=== PATIENT | male | born 1950 | race Caucasian/White ===

== ENCOUNTER 2020-02-07 09:36 | Inpatient (IN) | payer OTHER, MEDICARE ==
[~2020-02-07] VITALS: Ht 177.8 cm; Wt 98.5 kg
[2020-02-07] MEDS ORDERED: HYDROmorphone HCL 2 MG/ML VL IV ONE (10:00)
[2020-02-07] MEDS ORDERED: METOPROLOL TARTRATE 1MG/1ML-5ML VIAL IV ONE (10:00)
[2020-02-07] MEDS ORDERED: ONDANSETRON HCL 4 MG/2 ML VIAL IV ONE (10:00)
[2020-02-07] MEDS ORDERED: KETOROLAC TROMETH 15 mg/ml 1ML VL IV ONE (10:00)
[2020-02-07 10:52] LABS: Basophils # (auto) 0 10 ^3/uL (0-0.2); Eosinophils # (auto) 0 10 ^3/uL (0-0.8); Monocytes # (auto) 0.8 10 ^3/uL (0-1.3); Neutrophils # (auto) 8.6 10 ^3/uL (1.6-8.6); Platelet Count (auto) 142 10^3/uL (140-450)
[2020-02-07 10:54] LABS: Basophils % (auto) 0.1 % (0.0-2.0); Hematocrit 37.3 % (41.0-53.0); Hemoglobin 13.4 g/dL (13.5-17.5); Lymphocytes # (auto) 0.6 10 ^3/uL (0.4-5.4); Lymphocytes % (auto) 5.5 % (10.0-50.0); Mean Corpuscular Hemoglobin 37.3 pg (28.0-32.0); Mean Corpuscular Hgb Conc. 35.9 g/dL (32.0-36.0); Monocytes % (auto) 8.3 % (0.0-12.0); Neutrophils % (auto) 86.1 % (37.0-80.0); Red Blood Cells 3.58 10^6/uL (4.5-5.90); Red Cell Distribution Width 13.6 % (11.8-14.3)
[2020-02-07 11:08] LABS: Albumin 3.1 g/dL (3.4-5.0); Calcium 8.9 mg/dL (8.5-10.1); Magnesium 1.4 mg/dL (1.6-2.6); Potassium 3.9 mmol/L (3.5-5.1)
[2020-02-07 11:13] LABS: Bilirubin, Total 0.6 mg/dL (0.2-1.0); Total Protein 7.5 g/dL (6.4-8.2)
[2020-02-07 11:17] LABS: INR 1.14 (0.9-1.15); Partial Thromboplastin Time 35.2 sec (23.64-32.05)
[2020-02-07] MEDS ORDERED: NITROGLYCERIN 0.4 MG SL TAB SL PRN (12:00)
[2020-02-07] MEDS ORDERED: DEXTROSE (50%) 50ML SYRG IV PRN (12:00)
[2020-02-07] MEDS ORDERED: ACETAMINOPHEN 500 MG TAB PO PRN (12:00)
[2020-02-07] MEDS ORDERED: MORPHINE SULF INJ 2 MG/ML SYRINGE 1ML IV PRN (12:00)
[2020-02-07] MEDS ORDERED: ASPirin 81 mg TAB PO ONE ×2 (12:00→13:30)
[2020-02-07] MEDS ORDERED: LACTULOSE 20Gm/30ML SOLN PO PRN (12:00)
[2020-02-07] MEDS ORDERED: METOPROLOL TARTRATE 25 MG TAB PO ONE ×2 (12:30→13:30)
[2020-02-07] MEDS ORDERED: NITROGLYCERIN 0.2MG/HR TOPICAL PATCH TD ONE (13:30)
[2020-02-07] MEDS ORDERED: AMIODARONE HCL 150 MG in D5W 5% 100 ML IV ONE (13:30)
[2020-02-07] MEDS ORDERED: NICOTINE 14 MG/24HR TOPICAL PATCH TD ONE (13:30)
[2020-02-07] MEDS ORDERED: ENOXAPARIN SOD 120 MG/0.8 ML SYRINGE SC ONE (13:30)
[2020-02-07] MEDS ORDERED: SODIUM CHL 0.9% IV ONE (13:45)
[2020-02-07] MEDS ORDERED: ADENOSINE IV ONE (13:45)
[2020-02-07 14:04] LABS: Barbiturate Scree,Urine NEGATIVE (NEGATIVE); Benzodiazephine Screen, Urine NEGATIVE (NEGATIVE); Cannabinoid Screen, Urine POSITIVE (NEGATIVE); Cocaine Screen, Urine NEGATIVE (NEGATIVE); Opiate Scree,Urine NEGATIVE (NEGATIVE); Phencyclidine Screen, Urine NEGATIVE (NEGATIVE)
[2020-02-07 14:11] LABS: Amphetamine Screen, Urine NEGATIVE (NEGATIVE)
[2020-02-07 14:12] LABS: Alcohol, Urine < 3.0 mg/dL (0-5)
[2020-02-07] MEDS ORDERED: ADENOSINE 95 MG in GIVE UN-DILUTED 0 ML IV STA (14:14)
[2020-02-07] MEDS: traMADol HCL 50 MG TAB PO PRN ×2 (15:31→23:49)
[2020-02-07] MEDS: SODIUM CHLORIDE 0.9% 1,000 ML IV SCH (15:41)
[2020-02-07] MEDS: MAGNESIUM SULFATE 1GM/100ML 100 ML IV SCH ×2 (15:53→16:53)
[2020-02-07 16:55] LABS: Cholesterol 92 mg/dL (< 200); Triglycerides 148 mg/dL (< 150)
[2020-02-07 16:57] LABS: HDL Cholesterol 20 mg/dL (40-59); LDL Cholesterol 48 mg/dL (< 100)
[2020-02-07] MEDS: MORPHINE SULF INJ 2 MG/ML SYRINGE 1ML IV PRN (17:48)
[2020-02-07] MEDS: ACCU-CHEK COMFORT CURVE STRIP VI SCH ×2 (18:20→22:00)
[2020-02-07] MEDS: InsuLIN REG 1unit/0.01ml Soln (100units/ml) SC SCH ×2 (18:20→22:00)
[2020-02-07 19:30] VITALS: BP 168/101
[2020-02-07 20:00] VITALS: BP 145/91
[2020-02-07] MEDS ORDERED: IOHEXOL 350 MG/ML 100ML IJ ONE (20:10)
[2020-02-07] MEDS: ENOXAPARIN SOD 120 MG/0.8 ML SYRINGE SC SCH (22:00)
[2020-02-07] MEDS: APIXABAN 5 MG TAB PO SCH (23:36)
[2020-02-07] MEDS: ATORVASTATIN 20 MG TAB PO SCH (23:37)
[2020-02-07] MEDS: METOPROLOL TARTRATE 25 MG TAB PO SCH (23:37)
[2020-02-07] MEDS: TEMAZEPAM 15 MG CAP PO PRN (23:50)
[2020-02-07 23:52] VITALS: BP 133/57
[2020-02-08] MEDS: SODIUM CHLORIDE 0.9% 1,000 ML IV SCH ×2 (01:16→16:29)
[2020-02-08] MEDS: MORPHINE SULF INJ 2 MG/ML SYRINGE 1ML IV PRN (03:00)
[2020-02-08 04:00] VITALS: BP 145/88
[2020-02-08 05:50] LABS: Albumin 2.8 g/dL (3.4-5.0); Calcium 8.7 mg/dL (8.5-10.1)
[2020-02-08 05:56] LABS: BUN/Creatinine Ratio 19.8; Bilirubin, Total 0.7 mg/dL (0.2-1.0); Total Protein 7.2 g/dL (6.4-8.2)
[2020-02-08 06:05] LABS: Basophils # (auto) 0 10 ^3/uL (0-0.2); Basophils % (auto) 0.1 % (0.0-2.0); Eosinophils # (auto) 0 10 ^3/uL (0-0.8); Eosinophils % (auto) 0.1 % (0.0-7.0); Hematocrit 34.1 % (41.0-53.0); Hemoglobin 12.3 g/dL (13.5-17.5); Lymphocytes # (auto) 0.6 10 ^3/uL (0.4-5.4); Lymphocytes % (auto) 5.6 % (10.0-50.0); Mean Corpuscular Hemoglobin 37.2 pg (28.0-32.0); Mean Corpuscular Hgb Conc. 36.2 g/dL (32.0-36.0); Mean Corpuscular Volume 102.7 fL (80.0-100.0); Monocytes # (auto) 1.3 10 ^3/uL (0-1.3); Monocytes % (auto) 11.9 % (0.0-12.0); Neutrophils % (auto) 82.3 % (37.0-80.0); Platelet Count (auto) 157 10^3/uL (140-450); Red Blood Cells 3.32 10^6/uL (4.5-5.90); Red Cell Distribution Width 13.1 % (11.8-14.3)
[2020-02-08] MEDS: InsuLIN REG 1unit/0.01ml Soln (100units/ml) SC SCH ×4 (06:06→22:00)
[2020-02-08] MEDS: ACCU-CHEK COMFORT CURVE STRIP VI SCH ×4 (06:06→22:00)
[2020-02-08 07:40] VITALS: BP 141/96
[2020-02-08] MEDS ORDERED: IOHEXOL 350 MG/ML 100ML IJ ONE (08:58)
[2020-02-08] MEDS ORDERED: ASPirin 81 mg TAB PO SCH (10:00)
[2020-02-08] MEDS: ENOXAPARIN SOD 120 MG/0.8 ML SYRINGE SC SCH (10:52)
[2020-02-08] MEDS: METOPROLOL TARTRATE 25 MG TAB PO SCH ×2 (10:52→22:03)
[2020-02-08] MEDS: APIXABAN 5 MG TAB PO SCH ×2 (10:52→22:03)
[2020-02-08] MEDS: NITROGLYCERIN 0.2MG/HR TOPICAL PATCH TD SCH (10:53)
[2020-02-08] MEDS: NICOTINE 14 MG/24HR TOPICAL PATCH TD SCH (10:54)
[2020-02-08] MEDS: traMADol HCL 50 MG TAB PO PRN ×3 (11:40→22:04)
[2020-02-08 11:50] VITALS: BP 168/99
[2020-02-08 15:50] VITALS: BP 172/103
[2020-02-08] MEDS: cloNIDine HCL 0.1 MG TAB PO PRN ×2 (16:22→22:05)
[2020-02-08] MEDS ORDERED: ALPRAZolam 0.5 MG TAB PO PRN (16:45)
[2020-02-08] MEDS ORDERED: ASPI-378 PO (17:15)
[2020-02-08] MEDS ORDERED: ATOR40TA52 PO (17:15)
[2020-02-08] MEDS ORDERED: GABA100C9 PO (17:15)
[2020-02-08] MEDS ORDERED: PRAZ1CAP48 PO (17:15)
[2020-02-08] MEDS ORDERED: VENL-192 PO (17:15)
[2020-02-08] MEDS ORDERED: LISI-646 PO (17:15)
[2020-02-08] MEDS ORDERED: CYCL5TAB PO (17:15)
[2020-02-08] MEDS ORDERED: METF-929 PO (17:15)
[2020-02-08] MEDS ORDERED: POM (17:29)
[2020-02-08 20:00] VITALS: BP 175/109
[2020-02-08] MEDS: ATORVASTATIN 20 MG TAB PO SCH (22:03)
[2020-02-08] MEDS: TEMAZEPAM 15 MG CAP PO PRN (22:04)
[2020-02-08] MEDS ORDERED: LORazepam 2MG/ML-1ML VIAL IM ONE (22:30)
[2020-02-08] MEDS: METOPROLOL TARTRATE 1MG/1ML-5ML VIAL IV SCH ×3 (22:30→23:14)
[2020-02-09] VITALS (33 sets, daily range): BP systolic 84–150; BP diastolic 55–99
[2020-02-09] MEDS ORDERED: PIPERACILLIN-TAZOB 3.375GM 100 ML IV SCH
[2020-02-09] MEDS ORDERED: FLECAINIDE ACETATE 50 MG TAB PO ONE (00:15)
[2020-02-09] MEDS ORDERED: LORazepam 2MG/ML-1ML VIAL IV PRN ×2 (00:30→10:15)
[2020-02-09] MEDS: SODIUM CHLORIDE 0.9% 1,000 ML IV SCH ×2 (03:56→17:32)
[2020-02-09] MEDS: InsuLIN REG 1unit/0.01ml Soln (100units/ml) SC SCH ×4 (07:00→22:00)
[2020-02-09] MEDS: ACCU-CHEK COMFORT CURVE STRIP VI SCH ×4 (07:00→22:03)
[2020-02-09] MEDS ORDERED: AMIODARONE HCL 150 MG in D5W 5% 100 ML IV ONE (08:30)
[2020-02-09] MEDS ORDERED: AMIODARONE HCL 900 MG in DEXTROSE 500 ML IV SCH (08:37)
[2020-02-09 09:17] LABS: Albumin 2.5 g/dL (3.4-5.0); Calcium 8.6 mg/dL (8.5-10.1); Potassium 4.3 mmol/L (3.5-5.1)
[2020-02-09 09:21] LABS: Bilirubin, Total 0.9 mg/dL (0.2-1.0); Total Protein 7.2 g/dL (6.4-8.2)
[2020-02-09 09:43] LABS: BUN/Creatinine Ratio 22.6
[2020-02-09] MEDS ORDERED: SODIUM BICARBONATE 8.4 % INJ 50ML VIAL IV ONE ×3 (10:58→13:00)
[2020-02-09] MEDS ORDERED: LORazepam 2MG/ML-1ML VIAL IV ONE (12:45)
[2020-02-09] MEDS ORDERED: LIDOCAINE 1% (LOCAL ANESTH.) PF 5ml SDV ID ONE (13:00)
[2020-02-09] MEDS: METOPROLOL TARTRATE 25 MG TAB PO SCH ×2 (13:09→21:44)
[2020-02-09] MEDS: APIXABAN 5 MG TAB PO SCH ×2 (13:09→21:45)
[2020-02-09] MEDS: AMIODARONE HCL 900 MG in DEXTROSE 500 ML IV SCH (13:15)
[2020-02-09] MEDS: NITROGLYCERIN 0.2MG/HR TOPICAL PATCH TD SCH (13:28)
[2020-02-09] MEDS: FOLIC ACID 1 MG, MULTIPLE VITAMIN 10 ML, MAGNESIUM SULF SDV 50% 8 MEQ, THIAMINE INJ 100... INJ SCH ×5 (13:45)
[2020-02-09] MEDS ORDERED: MEROPENEM 1GM IVPB 100 ML IV SCH (14:00)
[2020-02-09 14:02] LABS: Hematocrit 38.2 % (41.0-53.0); Hemoglobin 13.3 g/dL (13.5-17.5); Red Blood Cells 3.65 10^6/uL (4.5-5.90)
[2020-02-09 14:04] LABS: Mean Corpuscular Hemoglobin 36.6 pg (28.0-32.0); Mean Corpuscular Hgb Conc. 34.9 g/dL (32.0-36.0); Mean Corpuscular Volume 104.7 fL (80.0-100.0); Platelet Count (auto) 190 10^3/uL (140-450); Red Cell Distribution Width 13.4 % (11.8-14.3)
[2020-02-09] MEDS ORDERED: ETOMIDATE (2MG/ML) 20ML VIAL IV ONE (14:05)
[2020-02-09] MEDS ORDERED: MIDAZOLAM DRIP 50 mg/50mL 50 ML IV ONE (14:06)
[2020-02-09] MEDS ORDERED: SUCCINYLCHOLINE CHLORIDE 20 MG/ML 10ML VIAL IV ONE (14:06)
[2020-02-09 14:24] LABS: Basophils % (manual) 0 (0.0-2.0); Blast Cells 0; Eosinophils % (manual) 0 (0-7); Metamyelocytes % 0; Myelocytes % 0; Promyelocytes % 0; Reactive Lymphocytes 0
[2020-02-09 14:36] LABS: Lactic Acid w/Reflex 5.4 mmol/L (0.4-2.0)
[2020-02-09] MEDS: MIDAZOLAM DRIP 50 mg/50mL 50 ML IV SCH ×3 (14:43→21:46)
[2020-02-09] MEDS ORDERED: fentaNYL Drip 2500mCg/250mlNS 250 ML IV ONE (14:46)
[2020-02-09] MEDS: fentaNYL Drip 2500mCg/250mlNS 250 ML IV SCH (15:00)
[2020-02-09] MEDS ORDERED: SODIUM CHLORIDE 0.9% 1,000 ML IV ONE (15:45)
[2020-02-09] MEDS ORDERED: VANCOMYCIN 1GM/250ML 250 ML IV ONE ×2 (15:45→17:00)
[2020-02-09] MEDS ORDERED: PIPERACILLIN-TAZOB 3.375GM 100 ML IV ONE (15:45)
[2020-02-09] MEDS ORDERED: VANCOMYCIN PER PHARMACY 0 MG IV SCH (16:00)
[2020-02-09 16:11] LABS: Band Neutrophils % (manual) 2; Lymphocytes % (manual) 6 (10.0-50.0); Monocytes % (manual) 6 (0-12)
[2020-02-09] MEDS: NICOTINE 14 MG/24HR TOPICAL PATCH TD SCH (16:14)
[2020-02-09] MEDS: PIPERACILLIN-TAZOB 3.375GM 100 ML IV SCH (19:00)
[2020-02-09] MEDS ORDERED: NOREPINEPHRINE 8 MG/250ML KIT 250 ML IV ONE (19:43)
[2020-02-09] MEDS ORDERED: chlordiazePOXIDE HCL 25 MG CAP PO PRN (21:15)
[2020-02-09] MEDS ORDERED: chlordiazePOXIDE HCL 25 MG CAP PO ONE (21:15)
[2020-02-09] MEDS ORDERED: ACETAMINOPHEN 650 mg PER 20 mL UD ONE (21:42)
[2020-02-09] MEDS ORDERED: ACETAMINOPHEN 650 MG RECT SUPP PR PRN (21:45)
[2020-02-09] MEDS: ATORVASTATIN 20 MG TAB PO SCH (21:45)
[2020-02-09] MEDS: SODIUM CHLOR 0.9% PF (SALINE LOCK) 10ML VIAL/SYR IV SCH (21:46)
[2020-02-09] MEDS: ACETAMINOPHEN 650 mg PER 20 mL UD GT PRN (21:57)
[2020-02-10] VITALS (99 sets, daily range): BP systolic 78–120; BP diastolic 46–85
[2020-02-10] MEDS ORDERED: SODIUM CHLORIDE 0.9% 500 ML IV SCH (00:01)
[2020-02-10] MEDS: PIPERACILLIN-TAZOB 3.375GM 100 ML IV SCH ×5 (00:24→23:45)
[2020-02-10] MEDS: NOREPINEPHRINE 8 MG/250ML KIT 250 ML IV SCH ×2 (00:32→17:40)
[2020-02-10] MEDS: SODIUM CHLORIDE 0.9% 1,000 ML IV SCH ×3 (01:49→23:46)
[2020-02-10 04:30] LABS: Basophils # (auto) 0 10 ^3/uL (0-0.2); Basophils % (auto) 0.2 % (0.0-2.0); Mean Corpuscular Hemoglobin 36.6 pg (28.0-32.0); Neutrophils # (auto) 8.2 10 ^3/uL (1.6-8.6)
[2020-02-10 04:32] LABS: Eosinophils # (auto) 0.1 10 ^3/uL (0-0.8); Eosinophils % (auto) 1.2 % (0.0-7.0); Hematocrit 35.8 % (41.0-53.0); Hemoglobin 12.5 g/dL (13.5-17.5); Lymphocytes # (auto) 1.2 10 ^3/uL (0.4-5.4); Lymphocytes % (auto) 12.1 % (10.0-50.0); Mean Corpuscular Volume 104.6 fL (80.0-100.0); Monocytes # (auto) 0.4 10 ^3/uL (0-1.3); Monocytes % (auto) 4.1 % (0.0-12.0); Neutrophils % (auto) 82.4 % (37.0-80.0); Nucleated Red Blood Cells % 0.1 %; Platelet Count (auto) 171 10^3/uL (140-450); Red Blood Cells 3.42 10^6/uL (4.5-5.90); Red Cell Distribution Width 13.7 % (11.8-14.3)
[2020-02-10 04:44] LABS: INR 1.47 (0.9-1.15); Partial Thromboplastin Time 39.4 sec (23.64-32.05)
[2020-02-10 04:48] LABS: BUN/Creatinine Ratio 31.3; Potassium 3.6 mmol/L (3.5-5.1)
[2020-02-10] MEDS: MIDAZOLAM DRIP 50 mg/50mL 50 ML IV SCH ×3 (05:22→18:28)
[2020-02-10] MEDS: ACCU-CHEK COMFORT CURVE STRIP VI SCH ×4 (05:57→22:35)
[2020-02-10] MEDS: InsuLIN REG 1unit/0.01ml Soln (100units/ml) SC SCH ×4 (05:57→22:35)
[2020-02-10] MEDS ORDERED: VANCOMYCIN 1GM/250ML 250 ML IV SCH (07:00)
[2020-02-10] MEDS ORDERED: FUROSEMIDE 40 MG/4 ML VIAL IV ONE (07:45)
[2020-02-10 09:30] LABS: Hepatitis B Surface Antibody Positive
[2020-02-10] MEDS: NITROGLYCERIN 0.2MG/HR TOPICAL PATCH TD SCH (09:32)
[2020-02-10] MEDS: METOPROLOL TARTRATE 25 MG TAB PO SCH ×2 (10:00→22:00)
[2020-02-10] MEDS: NICOTINE 14 MG/24HR TOPICAL PATCH TD SCH (10:00)
[2020-02-10] MEDS: APIXABAN 5 MG TAB PO SCH (10:00)
[2020-02-10] MEDS ORDERED: LIDOCAINE 2%HCL (LOCAL ANESTH.) INJ 20ML MDV ONE (10:06)
[2020-02-10] MEDS ORDERED: HEPARIN IN NS 1000Units/500mL 0 ML ONE (10:06)
[2020-02-10 10:08] LABS: Hepatitis A Total Antibody Negative
[2020-02-10] MEDS ORDERED: POTASSIUM CHL 20MEQ/100ML 100 ML IV ONE (10:30)
[2020-02-10] MEDS: SODIUM CHLOR 0.9% PF (SALINE LOCK) 10ML VIAL/SYR IV SCH ×2 (10:48→22:23)
[2020-02-10] MEDS: PANTOPRAZOLE 40 MG/10 ML VIAL INJ IV SCH (10:48)
[2020-02-10 11:25] LABS: Hepatitis B Core Total AB Negative; Hepatitis B Surface Antigen Negative (Negative); Hepatitis C Antibody Negative (Negative)
[2020-02-10] MEDS: fentaNYL Drip 2500mCg/250mlNS 250 ML IV SCH (11:52)
[2020-02-10] MEDS: PHENYLEPHRINE INJ 40 MG in SODIUM CHL 0.9% 250 ML IV SCH ×2 (12:24→20:09)
[2020-02-10] MEDS: AMIODARONE HCL 900 MG in DEXTROSE 500 ML IV SCH (16:00)
[2020-02-10] MEDS: FOLIC ACID 1 MG, MULTIPLE VITAMIN 10 ML, MAGNESIUM SULF SDV 50% 8 MEQ, THIAMINE INJ 100... INJ SCH ×5 (16:16)
[2020-02-10 17:08] LABS: BUN/Creatinine Ratio 32.4; Calcium 7.6 mg/dL (8.5-10.1); Potassium 3.3 mmol/L (3.5-5.1)
[2020-02-10] MEDS: FUROSEMIDE 40 MG/4 ML VIAL IV SCH (17:40)
[2020-02-10] MEDS: POTASSIUM CHL 20MEQ/100ML 100 ML IV SCH ×2 (17:55→20:03)
[2020-02-10] MEDS ORDERED: POTASSIUM EFFERVESENT TAB 25 MEQ GT ONE (19:00)
[2020-02-10] MEDS: VANCOMYCIN 1GM/250ML 250 ML IV SCH (20:07)
[2020-02-10] MEDS: ENOXAPARIN SOD 120 MG/0.8 ML SYRINGE SC SCH (22:22)
[2020-02-10] MEDS: ATORVASTATIN 20 MG TAB PO SCH (22:23)
[2020-02-11] VITALS (102 sets, daily range): BP systolic 79–136; BP diastolic 39–109
[2020-02-11] MEDS: MIDAZOLAM DRIP 50 mg/50mL 50 ML IV SCH ×2 (03:13→12:48)
[2020-02-11 04:09] LABS: Basophils # (auto) 0 10 ^3/uL (0-0.2); Basophils % (auto) 0.3 % (0.0-2.0); Eosinophils # (auto) 0.2 10 ^3/uL (0-0.8); Eosinophils % (auto) 1.6 % (0.0-7.0); Hematocrit 37.2 % (41.0-53.0); Hemoglobin 12.6 g/dL (13.5-17.5); Lymphocytes # (auto) 0.6 10 ^3/uL (0.4-5.4); Lymphocytes % (auto) 5.1 % (10.0-50.0); Mean Corpuscular Hemoglobin 35.6 pg (28.0-32.0); Mean Corpuscular Hgb Conc. 33.9 g/dL (32.0-36.0); Mean Corpuscular Volume 105.1 fL (80.0-100.0); Monocytes # (auto) 0.7 10 ^3/uL (0-1.3); Monocytes % (auto) 5.7 % (0.0-12.0); Neutrophils # (auto) 10.7 10 ^3/uL (1.6-8.6); Neutrophils % (auto) 87.3 % (37.0-80.0); Nucleated Red Blood Cells % 0.5 %; Platelet Count (auto) 182 10^3/uL (140-450); Red Blood Cells 3.54 10^6/uL (4.5-5.90); Red Cell Distribution Width 14.3 % (11.8-14.3); White Blood Cell 12.3 10^3/uL (4.4-10.8)
[2020-02-11 04:39] LABS: Potassium 3.4 mmol/L (3.5-5.1)
[2020-02-11 04:41] LABS: BUN/Creatinine Ratio 27.1
[2020-02-11] MEDS: PHENYLEPHRINE INJ 40 MG in SODIUM CHL 0.9% 250 ML IV SCH ×3 (04:48→18:33)
[2020-02-11] MEDS: PIPERACILLIN-TAZOB 3.375GM 100 ML IV SCH ×4 (06:06→23:50)
[2020-02-11] MEDS ORDERED: FUROSEMIDE 20 MG/2 ML VIAL ONE (06:10)
[2020-02-11] MEDS: fentaNYL Drip 2500mCg/250mlNS 250 ML IV SCH (06:10)
[2020-02-11] MEDS: FUROSEMIDE 40 MG/4 ML VIAL IV SCH (06:14)
[2020-02-11] MEDS: ACCU-CHEK COMFORT CURVE STRIP VI SCH ×4 (06:15→21:46)
[2020-02-11] MEDS: InsuLIN REG 1unit/0.01ml Soln (100units/ml) SC SCH ×4 (06:15→21:52)
[2020-02-11] MEDS ORDERED: POTASSIUM EFFERVESENT TAB 25 MEQ GT ONE (08:15)
[2020-02-11] MEDS: VANCOMYCIN 1GM/250ML 250 ML IV SCH ×2 (09:20→21:09)
[2020-02-11] MEDS: SODIUM CHLOR 0.9% PF (SALINE LOCK) 10ML VIAL/SYR IV SCH ×2 (10:50→22:16)
[2020-02-11] MEDS: PANTOPRAZOLE 40 MG/10 ML VIAL INJ IV SCH (10:50)
[2020-02-11] MEDS: METOPROLOL TARTRATE 25 MG TAB PO SCH ×2 (10:51→22:00)
[2020-02-11] MEDS: NICOTINE 14 MG/24HR TOPICAL PATCH TD SCH (10:52)
[2020-02-11] MEDS: NITROGLYCERIN 0.2MG/HR TOPICAL PATCH TD SCH (10:53)
[2020-02-11] MEDS: ENOXAPARIN SOD 120 MG/0.8 ML SYRINGE SC SCH ×2 (15:45→22:17)
[2020-02-11] MEDS: AMIODARONE HCL 900 MG in DEXTROSE 500 ML IV SCH (16:30)
[2020-02-11] MEDS ORDERED: FUROSEMIDE 100 MG/10ML VIAL IV ONE (19:00)
[2020-02-11] MEDS: NOREPINEPHRINE 8 MG/250ML KIT 250 ML IV SCH (19:45)
[2020-02-11] MEDS: ACETAMINOPHEN 650 mg PER 20 mL UD GT PRN (21:12)
[2020-02-11] MEDS: ATORVASTATIN 20 MG TAB PO SCH (22:17)
[2020-02-12] VITALS (106 sets, daily range): BP systolic 89–160; BP diastolic 57–109
[2020-02-12 04:04] LABS: Basophils # (auto) 0.1 10 ^3/uL (0-0.2); Basophils % (auto) 0.4 % (0.0-2.0); Eosinophils # (auto) 0 10 ^3/uL (0-0.8); Hemoglobin 12.1 g/dL (13.5-17.5); Lymphocytes # (auto) 1.1 10 ^3/uL (0.4-5.4); Monocytes # (auto) 0.7 10 ^3/uL (0-1.3)
[2020-02-12 04:06] LABS: Eosinophils % (auto) 0.2 % (0.0-7.0); Hematocrit 35.3 % (41.0-53.0); Lymphocytes % (auto) 8.4 % (10.0-50.0); Mean Corpuscular Hemoglobin 35.4 pg (28.0-32.0); Mean Corpuscular Hgb Conc. 34.3 g/dL (32.0-36.0); Mean Corpuscular Volume 103.2 fL (80.0-100.0); Monocytes % (auto) 5.2 % (0.0-12.0); Neutrophils # (auto) 11.4 10 ^3/uL (1.6-8.6); Neutrophils % (auto) 85.8 % (37.0-80.0); Nucleated Red Blood Cells % 0.5 %; Platelet Count (auto) 186 10^3/uL (140-450); Red Blood Cells 3.42 10^6/uL (4.5-5.90); Red Cell Distribution Width 13.9 % (11.8-14.3); White Blood Cell 13.3 10^3/uL (4.4-10.8)
[2020-02-12 04:19] LABS: INR 1.54 (0.9-1.15); Partial Thromboplastin Time 46.6 sec (23.64-32.05)
[2020-02-12 04:20] LABS: Albumin 1.4 g/dL (3.4-5.0); Calcium 7.6 mg/dL (8.5-10.1)
[2020-02-12 04:31] LABS: Bilirubin, Total 2.2 mg/dL (0.2-1.0); Total Protein 5.7 g/dL (6.4-8.2)
[2020-02-12] MEDS: VANCOMYCIN 1GM/250ML 250 ML IV SCH ×3 (04:59→20:57)
[2020-02-12] MEDS ORDERED: POTASSIUM CHL 20MEQ/100ML 100 ML IV ONE (06:00)
[2020-02-12] MEDS: PIPERACILLIN-TAZOB 3.375GM 100 ML IV SCH ×4 (06:06→23:37)
[2020-02-12] MEDS: FUROSEMIDE 100 MG/10ML VIAL IV SCH ×2 (06:19→18:18)
[2020-02-12] MEDS: ACCU-CHEK COMFORT CURVE STRIP VI SCH ×4 (06:33→21:40)
[2020-02-12] MEDS: InsuLIN REG 1unit/0.01ml Soln (100units/ml) SC SCH ×4 (06:34→21:55)
[2020-02-12 07:48] LABS: Bilirubin, Direct 1.8 mg/dL (0-0.2)
[2020-02-12 08:48] LABS: BUN/Creatinine Ratio 28.9
[2020-02-12] MEDS: ENOXAPARIN SOD 120 MG/0.8 ML SYRINGE SC SCH ×2 (09:44→21:39)
[2020-02-12] MEDS: PANTOPRAZOLE 40 MG/10 ML VIAL INJ IV SCH (09:45)
[2020-02-12] MEDS: METOPROLOL TARTRATE 25 MG TAB PO SCH ×2 (09:45→21:40)
[2020-02-12] MEDS: NICOTINE 14 MG/24HR TOPICAL PATCH TD SCH (09:46)
[2020-02-12] MEDS: NITROGLYCERIN 0.2MG/HR TOPICAL PATCH TD SCH (09:46)
[2020-02-12] MEDS: SODIUM CHLOR 0.9% PF (SALINE LOCK) 10ML VIAL/SYR IV SCH ×2 (11:05→21:53)
[2020-02-12] MEDS: PHENYLEPHRINE INJ 40 MG in SODIUM CHL 0.9% 250 ML IV SCH (12:28)
[2020-02-12] MEDS: MIDAZOLAM DRIP 50 mg/50mL 50 ML IV SCH (14:43)
[2020-02-12] MEDS: fentaNYL Drip 2500mCg/250mlNS 250 ML IV SCH (14:43)
[2020-02-12] MEDS: AMIODARONE HCL 900 MG in DEXTROSE 500 ML IV SCH (16:56)
[2020-02-12] MEDS: POTASSIUM EFFERVESENT TAB 25 MEQ GT SCH (18:18)
[2020-02-12] MEDS: NOREPINEPHRINE 8 MG/250ML KIT 250 ML IV SCH (19:45)
[2020-02-12] MEDS: ATORVASTATIN 20 MG TAB PO SCH (21:39)
[2020-02-12] MEDS: AMIODARONE HCL 200 MG TAB PO SCH (21:39)
[2020-02-13] VITALS (101 sets, daily range): BP systolic 103–176; BP diastolic 42–131
[2020-02-13 04:18] LABS: Albumin 1.5 g/dL (3.4-5.0); BUN/Creatinine Ratio 27.6; Magnesium 1.3 mg/dL (1.6-2.6); Potassium 3.3 mmol/L (3.5-5.1)
[2020-02-13 04:21] LABS: Bilirubin, Total 2.2 mg/dL (0.2-1.0); Total Protein 6.2 g/dL (6.4-8.2)
[2020-02-13] MEDS: VANCOMYCIN 1GM/250ML 250 ML IV SCH (04:55)
[2020-02-13] MEDS ORDERED: POTASSIUM CHL 20MEQ/100ML 100 ML IV ONE (05:30)
[2020-02-13] MEDS: PIPERACILLIN-TAZOB 3.375GM 100 ML IV SCH (05:51)
[2020-02-13] MEDS: FUROSEMIDE 100 MG/10ML VIAL IV SCH ×2 (05:57→18:24)
[2020-02-13] MEDS ORDERED: MAGNESIUM SULFATE 1GM/100ML 100 ML IV ONE ×3 (06:00→15:00)
[2020-02-13] MEDS: InsuLIN REG 1unit/0.01ml Soln (100units/ml) SC SCH ×4 (06:33→22:00)
[2020-02-13] MEDS: ACCU-CHEK COMFORT CURVE STRIP VI SCH ×4 (06:33→22:05)
[2020-02-13] MEDS: SODIUM CHLOR 0.9% PF (SALINE LOCK) 10ML VIAL/SYR IV SCH ×2 (10:00→22:02)
[2020-02-13] MEDS: POTASSIUM EFFERVESENT TAB 25 MEQ GT SCH (10:59)
[2020-02-13] MEDS: PANTOPRAZOLE 40 MG/10 ML VIAL INJ IV SCH (10:59)
[2020-02-13] MEDS: levoFLOXacin 750MG 150 ML IV SCH (11:00)
[2020-02-13] MEDS: fentaNYL Drip 2500mCg/250mlNS 250 ML IV SCH (11:00)
[2020-02-13] MEDS: AMIODARONE HCL 200 MG TAB PO SCH ×2 (11:00→22:03)
[2020-02-13] MEDS: ENOXAPARIN SOD 120 MG/0.8 ML SYRINGE SC SCH ×2 (11:01→22:04)
[2020-02-13] MEDS: METOPROLOL TARTRATE 25 MG TAB PO SCH ×2 (11:01→22:03)
[2020-02-13] MEDS: NITROGLYCERIN 0.2MG/HR TOPICAL PATCH TD SCH (11:02)
[2020-02-13] MEDS: NICOTINE 14 MG/24HR TOPICAL PATCH TD SCH (11:03)
[2020-02-13 11:42] LABS: Basophils # (auto) 0 10 ^3/uL (0-0.2); Eosinophils # (auto) 0 10 ^3/uL (0-0.8); Lymphocytes # (auto) 0.8 10 ^3/uL (0.4-5.4); Monocytes # (auto) 0.5 10 ^3/uL (0-1.3); Neutrophils # (auto) 8.7 10 ^3/uL (1.6-8.6); Red Cell Distribution Width 14.5 % (11.8-14.3)
[2020-02-13 11:45] LABS: Basophils % (auto) 0.3 % (0.0-2.0); Eosinophils % (auto) 0.3 % (0.0-7.0); Hematocrit 35.4 % (41.0-53.0); Hemoglobin 12.4 g/dL (13.5-17.5); Lymphocytes % (auto) 7.9 % (10.0-50.0); Mean Corpuscular Hemoglobin 36.4 pg (28.0-32.0); Mean Corpuscular Hgb Conc. 35.1 g/dL (32.0-36.0); Mean Corpuscular Volume 103.7 fL (80.0-100.0); Monocytes % (auto) 4.9 % (0.0-12.0); Neutrophils % (auto) 86.6 % (37.0-80.0); Nucleated Red Blood Cells % 0.3 %; Platelet Count (auto) 172 10^3/uL (140-450); Red Blood Cells 3.41 10^6/uL (4.5-5.90)
[2020-02-13 13:52] LABS: Magnesium 1.5 mg/dL (1.6-2.6); Potassium 3.2 mmol/L (3.5-5.1)
[2020-02-13] MEDS: AMIODARONE HCL 900 MG in DEXTROSE 500 ML IV SCH (14:37)
[2020-02-13] MEDS: MIDAZOLAM DRIP 50 mg/50mL 50 ML IV SCH (14:43)
[2020-02-13] MEDS ORDERED: POTASSIUM CHL 20MEQ/100ML 200 ML IV ONE (15:00)
[2020-02-13] MEDS: POTASSIUM CHL 20MEQ/100ML 100 ML IV SCH ×2 (15:00→16:31)
[2020-02-13] MEDS: ceFAZolin 2 GM in D5W 5% 100 ML IV SCH ×2 (15:55→22:02)
[2020-02-13] MEDS: NOREPINEPHRINE 8 MG/250ML KIT 250 ML IV SCH (19:45)
[2020-02-13] MEDS: ATORVASTATIN 20 MG TAB PO SCH (22:03)
[2020-02-13] MEDS: PHENYLEPHRINE INJ 40 MG in SODIUM CHL 0.9% 250 ML IV SCH (22:05)
[2020-02-14] VITALS (106 sets, daily range): BP systolic 115–165; BP diastolic 67–102
[2020-02-14] MEDS: DexMEDEtomidine 400 MCG in D5W 5% 96 ML IV SCH ×2 (04:22→12:38)
[2020-02-14 04:54] LABS: Calcium 8.2 mg/dL (8.5-10.1); Potassium 3.9 mmol/L (3.5-5.1)
[2020-02-14 05:02] LABS: Albumin 1.5 g/dL (3.4-5.0); BUN/Creatinine Ratio 31.3; Bilirubin, Total 1.5 mg/dL (0.2-1.0); Total Protein 6.5 g/dL (6.4-8.2)
[2020-02-14 05:13] LABS: Hematocrit 37.7 % (41.0-53.0)
[2020-02-14 05:15] LABS: Hemoglobin 12.9 g/dL (13.5-17.5); Mean Corpuscular Hemoglobin 35.1 pg (28.0-32.0); Mean Corpuscular Hgb Conc. 34.1 g/dL (32.0-36.0); Mean Corpuscular Volume 102.8 fL (80.0-100.0); Platelet Count (auto) 183 10^3/uL (140-450); Red Blood Cells 3.67 10^6/uL (4.5-5.90); Red Cell Distribution Width 14.8 % (11.8-14.3)
[2020-02-14 05:29] LABS: Basophils % (manual) 0 (0.0-2.0); Blast Cells 0; Eosinophils % (manual) 0 (0-7); Metamyelocytes % 0; Myelocytes % 0; Promyelocytes % 0; Reactive Lymphocytes 0
[2020-02-14] MEDS: FUROSEMIDE 100 MG/10ML VIAL IV SCH ×2 (05:31→18:02)
[2020-02-14] MEDS: ceFAZolin 2 GM in D5W 5% 100 ML IV SCH ×3 (05:34→22:09)
[2020-02-14] MEDS: ACCU-CHEK COMFORT CURVE STRIP VI SCH ×4 (06:30→22:08)
[2020-02-14] MEDS: InsuLIN REG 1unit/0.01ml Soln (100units/ml) SC SCH ×4 (06:30→22:00)
[2020-02-14 07:18] LABS: Band Neutrophils % (manual) 3; Lymphocytes % (manual) 5 (10.0-50.0); Monocytes % (manual) 3 (0-12)
[2020-02-14] MEDS: POTASSIUM EFFERVESENT TAB 25 MEQ GT SCH (10:24)
[2020-02-14] MEDS: levoFLOXacin 750MG 150 ML IV SCH (10:24)
[2020-02-14] MEDS: SODIUM CHLOR 0.9% PF (SALINE LOCK) 10ML VIAL/SYR IV SCH ×2 (10:24→22:09)
[2020-02-14] MEDS: METOPROLOL TARTRATE 25 MG TAB PO SCH ×2 (10:24→22:08)
[2020-02-14] MEDS: AMIODARONE HCL 200 MG TAB PO SCH ×2 (10:24→22:08)
[2020-02-14] MEDS: NICOTINE 14 MG/24HR TOPICAL PATCH TD SCH (10:25)
[2020-02-14] MEDS: ENOXAPARIN SOD 120 MG/0.8 ML SYRINGE SC SCH ×2 (10:25→22:08)
[2020-02-14] MEDS: NITROGLYCERIN 0.2MG/HR TOPICAL PATCH TD SCH (10:25)
[2020-02-14] MEDS: PANTOPRAZOLE 40 MG/10 ML VIAL INJ IV SCH (10:25)
[2020-02-14] MEDS: AMIODARONE HCL 900 MG in DEXTROSE 500 ML IV SCH (14:37)
[2020-02-14] MEDS: MIDAZOLAM DRIP 50 mg/50mL 50 ML IV SCH (14:43)
[2020-02-14] MEDS: fentaNYL Drip 2500mCg/250mlNS 250 ML IV SCH (14:43)
[2020-02-14] MEDS: PHENYLEPHRINE INJ 40 MG in SODIUM CHL 0.9% 250 ML IV SCH (14:45)
[2020-02-14] MEDS: cloNIDine HCL 0.1 MG TAB PO PRN (18:02)
[2020-02-14] MEDS: NOREPINEPHRINE 8 MG/250ML KIT 250 ML IV SCH (19:45)
[2020-02-14] MEDS: ACETAMINOPHEN 650 mg PER 20 mL UD GT PRN (21:39)
[2020-02-14] MEDS: ATORVASTATIN 20 MG TAB PO SCH (22:08)
[2020-02-15] VITALS (106 sets, daily range): BP systolic 116–155; BP diastolic 56–100
[2020-02-15 04:01] LABS: Basophils # (auto) 0 10 ^3/uL (0-0.2); Basophils % (auto) 0.2 % (0.0-2.0); Eosinophils # (auto) 0 10 ^3/uL (0-0.8); Eosinophils % (auto) 0.1 % (0.0-7.0); Hematocrit 36.1 % (41.0-53.0); Hemoglobin 12.5 g/dL (13.5-17.5); Lymphocytes # (auto) 1.3 10 ^3/uL (0.4-5.4); Lymphocytes % (auto) 9.5 % (10.0-50.0); Mean Corpuscular Hgb Conc. 34.5 g/dL (32.0-36.0); Mean Corpuscular Volume 101.3 fL (80.0-100.0); Monocytes # (auto) 0.7 10 ^3/uL (0-1.3); Neutrophils # (auto) 11.3 10 ^3/uL (1.6-8.6); Neutrophils % (auto) 85.2 % (37.0-80.0); Nucleated Red Blood Cells % 0.1 %; Platelet Count (auto) 177 10^3/uL (140-450); Red Blood Cells 3.57 10^6/uL (4.5-5.90); Red Cell Distribution Width 14.6 % (11.8-14.3); White Blood Cell 13.3 10^3/uL (4.4-10.8)
[2020-02-15 04:21] LABS: Calcium 8.5 mg/dL (8.5-10.1); Potassium 3.4 mmol/L (3.5-5.1)
[2020-02-15 04:25] LABS: Albumin 1.6 g/dL (3.4-5.0); BUN/Creatinine Ratio 37.8
[2020-02-15 04:27] LABS: Bilirubin, Total 1.1 mg/dL (0.2-1.0); Total Protein 6.2 g/dL (6.4-8.2)
[2020-02-15] MEDS: ACCU-CHEK COMFORT CURVE STRIP VI SCH ×4 (06:27→22:00)
[2020-02-15] MEDS: ceFAZolin 2 GM in D5W 5% 100 ML IV SCH ×3 (06:27→22:00)
[2020-02-15] MEDS: FUROSEMIDE 100 MG/10ML VIAL IV SCH ×2 (06:27→18:16)
[2020-02-15] MEDS: InsuLIN REG 1unit/0.01ml Soln (100units/ml) SC SCH ×4 (06:27→22:00)
[2020-02-15] MEDS: PHENYLEPHRINE INJ 40 MG in SODIUM CHL 0.9% 250 ML IV SCH (07:25)
[2020-02-15] MEDS: DexMEDEtomidine 400 MCG in D5W 5% 96 ML IV SCH (07:38)
[2020-02-15] MEDS: PANTOPRAZOLE 40 MG/10 ML VIAL INJ IV SCH (10:33)
[2020-02-15] MEDS: NICOTINE 14 MG/24HR TOPICAL PATCH TD SCH (10:33)
[2020-02-15] MEDS: levoFLOXacin 750MG 150 ML IV SCH (10:33)
[2020-02-15] MEDS: SODIUM CHLOR 0.9% PF (SALINE LOCK) 10ML VIAL/SYR IV SCH ×2 (10:34→22:00)
[2020-02-15] MEDS: NITROGLYCERIN 0.2MG/HR TOPICAL PATCH TD SCH (10:34)
[2020-02-15] MEDS: AMIODARONE HCL 200 MG TAB PO SCH ×2 (10:34→22:00)
[2020-02-15] MEDS: METOPROLOL TARTRATE 25 MG TAB PO SCH ×2 (10:34→22:00)
[2020-02-15] MEDS: POTASSIUM EFFERVESENT TAB 25 MEQ GT SCH (10:35)
[2020-02-15] MEDS: ENOXAPARIN SOD 120 MG/0.8 ML SYRINGE SC SCH ×2 (10:35→22:00)
[2020-02-15] MEDS: AMIODARONE HCL 900 MG in DEXTROSE 500 ML IV SCH (14:37)
[2020-02-15] MEDS: fentaNYL Drip 2500mCg/250mlNS 250 ML IV SCH (14:43)
[2020-02-15] MEDS: MIDAZOLAM DRIP 50 mg/50mL 50 ML IV SCH (14:43)
[2020-02-15] MEDS: NOREPINEPHRINE 8 MG/250ML KIT 250 ML IV SCH (19:45)
[2020-02-15] MEDS: ATORVASTATIN 20 MG TAB PO SCH (22:00)
[2020-02-16] VITALS (77 sets, daily range): BP systolic 117–162; BP diastolic 69–95
[2020-02-16] MEDS: PHENYLEPHRINE INJ 40 MG in SODIUM CHL 0.9% 250 ML IV SCH ×2 (00:05→15:40)
[2020-02-16] MEDS: DexMEDEtomidine 400 MCG in D5W 5% 96 ML IV SCH (02:38)
[2020-02-16] MEDS: ACETAMINOPHEN 650 mg PER 20 mL UD GT PRN (04:17)
[2020-02-16] MEDS ORDERED: ceFAZolin 1GM/50ML 50 ML IV ONE (05:57)
[2020-02-16] MEDS: FUROSEMIDE 100 MG/10ML VIAL IV SCH ×2 (06:27→16:51)
[2020-02-16] MEDS ORDERED: methylPREDNISolone SOD SUCC 125 MG/2 ML VL IV ONE (09:15)
[2020-02-16] MEDS ORDERED: methylPREDNISolone SOD SUCC 125 MG/2 ML VL ONE (09:41)
[2020-02-16] MEDS: POTASSIUM EFFERVESENT TAB 25 MEQ GT SCH (09:46)
[2020-02-16] MEDS: PANTOPRAZOLE 40 MG/10 ML VIAL INJ IV SCH (09:46)
[2020-02-16] MEDS: ENOXAPARIN SOD 120 MG/0.8 ML SYRINGE SC SCH ×2 (09:47→22:09)
[2020-02-16] MEDS: METOPROLOL TARTRATE 25 MG TAB PO SCH ×2 (09:47→22:07)
[2020-02-16] MEDS: AMIODARONE HCL 200 MG TAB PO SCH ×2 (09:47→22:06)
[2020-02-16] MEDS: levoFLOXacin 750MG 150 ML IV SCH (09:48)
[2020-02-16] MEDS: SODIUM CHLOR 0.9% PF (SALINE LOCK) 10ML VIAL/SYR IV SCH ×2 (09:48→22:05)
[2020-02-16] MEDS: NICOTINE 14 MG/24HR TOPICAL PATCH TD SCH (09:49)
[2020-02-16] MEDS: NITROGLYCERIN 0.2MG/HR TOPICAL PATCH TD SCH (10:05)
[2020-02-16 10:51] LABS: Albumin 1.5 g/dL (3.4-5.0); BUN/Creatinine Ratio 36.7; Calcium 7.2 mg/dL (8.5-10.1); Total Protein 5.7 g/dL (6.4-8.2)
[2020-02-16 10:57] LABS: Potassium 2.8 mmol/L (3.5-5.1)
[2020-02-16] MEDS: POTASSIUM CHL 20MEQ/100ML 100 ML IV SCH ×3 (11:29→15:00)
[2020-02-16] MEDS: InsuLIN REG 1unit/0.01ml Soln (100units/ml) SC SCH ×3 (11:30→22:00)
[2020-02-16] MEDS: ACCU-CHEK COMFORT CURVE STRIP VI SCH ×3 (11:31→22:09)
[2020-02-16] MEDS: ceFAZolin 2 GM in D5W 5% 100 ML IV SCH ×2 (14:00→22:00)
[2020-02-16] MEDS: AMIODARONE HCL 900 MG in DEXTROSE 500 ML IV SCH (14:37)
[2020-02-16] MEDS: fentaNYL Drip 2500mCg/250mlNS 250 ML IV SCH (14:43)
[2020-02-16] MEDS: MIDAZOLAM DRIP 50 mg/50mL 50 ML IV SCH (14:43)
[2020-02-16] MEDS: ATORVASTATIN 20 MG TAB PO SCH (22:06)
[2020-02-17 04:35] LABS: Eosinophils # (auto) 0 10 ^3/uL (0-0.8); Monocytes # (auto) 0.6 10 ^3/uL (0-1.3)
[2020-02-17 04:36] LABS: Basophils # (auto) 0.1 10 ^3/uL (0-0.2); Basophils % (auto) 0.5 % (0.0-2.0); Hematocrit 37.1 % (41.0-53.0); Hemoglobin 12.6 g/dL (13.5-17.5); Lymphocytes # (auto) 1.4 10 ^3/uL (0.4-5.4); Lymphocytes % (auto) 11.5 % (10.0-50.0); Mean Corpuscular Hgb Conc. 34.1 g/dL (32.0-36.0); Mean Corpuscular Volume 102.5 fL (80.0-100.0); Monocytes % (auto) 5.2 % (0.0-12.0); Neutrophils # (auto) 9.9 10 ^3/uL (1.6-8.6); Neutrophils % (auto) 82.8 % (37.0-80.0); Platelet Count (auto) 244 10^3/uL (140-450); Red Blood Cells 3.62 10^6/uL (4.5-5.90); Red Cell Distribution Width 15.2 % (11.8-14.3)
[2020-02-17 04:52] LABS: Albumin 1.8 g/dL (3.4-5.0); Calcium 8.7 mg/dL (8.5-10.1); Potassium 3.3 mmol/L (3.5-5.1)
[2020-02-17 04:55] LABS: BUN/Creatinine Ratio 38.5; Bilirubin, Total 0.8 mg/dL (0.2-1.0); Total Protein 7.1 g/dL (6.4-8.2)
[2020-02-17 05:05] VITALS: BP 136/75
[2020-02-17] MEDS: FUROSEMIDE 100 MG/10ML VIAL IV SCH ×2 (06:21→18:21)
[2020-02-17] MEDS: ACCU-CHEK COMFORT CURVE STRIP VI SCH ×4 (06:40→22:58)
[2020-02-17] MEDS: InsuLIN REG 1unit/0.01ml Soln (100units/ml) SC SCH ×4 (06:41→22:57)
[2020-02-17] MEDS ORDERED: LIDOCAINE 2%HCL (LOCAL ANESTH.) INJ 20ML MDV ONE ×2 (08:13→10:11)
[2020-02-17] MEDS ORDERED: IODIXANOL 320MG/ML 100ML BTL IV ONE (08:13)
[2020-02-17] MEDS ORDERED: HEPARIN IN NS 1000Units/500mL 0 ML ONE (08:14)
[2020-02-17 09:00] VITALS: BP 130/81
[2020-02-17] MEDS ORDERED: LORazepam 2MG/ML-1ML VIAL IV PRN (09:15)
[2020-02-17] MEDS: POTASSIUM EFFERVESENT TAB 25 MEQ GT SCH (10:00)
[2020-02-17] MEDS: ENOXAPARIN SOD 120 MG/0.8 ML SYRINGE SC SCH (10:00)
[2020-02-17] MEDS: NICOTINE 14 MG/24HR TOPICAL PATCH TD SCH (10:00)
[2020-02-17] MEDS ORDERED: HEPARIN SODIUM (PORCINE) 5000 UNITS/ML 1ML VIAL ONE (10:09)
[2020-02-17] MEDS ORDERED: ANGIOMAX 250 MG VIAL IV ONE (10:09)
[2020-02-17] MEDS ORDERED: VERAPAMIL 2.5MG/ML INJ 2ML VIAL IV ONE (10:09)
[2020-02-17] MEDS ORDERED: fentaNYL CITRATE 100 MCG/2 ML VL ONE (10:09)
[2020-02-17] MEDS ORDERED: SODIUM CHL 0.9% 0 ML ONE (10:10)
[2020-02-17] MEDS ORDERED: MIDAZOLAM HCL 1MG/1ML-2 ML VIAL ONE (10:10)
[2020-02-17] MEDS ORDERED: IOHEXOL 350 MG/ML 100ML IJ ONE (10:11)
[2020-02-17] MEDS ORDERED: diphenhdrAMINE HCL 50 MG/1 ML VL ONE (10:40)
[2020-02-17] MEDS: PANTOPRAZOLE 40 MG/10 ML VIAL INJ IV SCH (12:41)
[2020-02-17] MEDS: levoFLOXacin 750MG 150 ML IV SCH (12:42)
[2020-02-17] MEDS: SODIUM CHLOR 0.9% PF (SALINE LOCK) 10ML VIAL/SYR IV SCH ×2 (12:42→22:24)
[2020-02-17] MEDS: AMIODARONE HCL 200 MG TAB PO SCH ×2 (12:42→22:22)
[2020-02-17] MEDS: NITROGLYCERIN 0.2MG/HR TOPICAL PATCH TD SCH (12:47)
[2020-02-17] MEDS: METOPROLOL TARTRATE 25 MG TAB PO SCH ×2 (12:47→22:23)
[2020-02-17 13:00] VITALS: BP 130/81
[2020-02-17 17:00] VITALS: BP 112/72
[2020-02-17] MEDS: ceFAZolin 2 GM in D5W 5% 100 ML IV SCH ×2 (18:00→22:22)
[2020-02-17 22:00] VITALS: BP 129/76
[2020-02-17] MEDS: APIXABAN 5 MG TAB PO SCH (22:22)
[2020-02-17] MEDS: ATORVASTATIN 20 MG TAB PO SCH (22:23)
[2020-02-18 05:00] VITALS: BP 129/68
[2020-02-18] MEDS: ceFAZolin 2 GM in D5W 5% 100 ML IV SCH ×2 (05:39→15:00)
[2020-02-18] MEDS: FUROSEMIDE 100 MG/10ML VIAL IV SCH ×2 (05:39→18:30)
[2020-02-18] MEDS: InsuLIN REG 1unit/0.01ml Soln (100units/ml) SC SCH ×4 (06:07→21:54)
[2020-02-18] MEDS: ACCU-CHEK COMFORT CURVE STRIP VI SCH ×4 (06:08→21:54)
[2020-02-18 06:29] LABS: Basophils # (auto) 0 10 ^3/uL (0-0.2); Eosinophils # (auto) 0 10 ^3/uL (0-0.8); Neutrophils # (auto) 9.5 10 ^3/uL (1.6-8.6)
[2020-02-18 06:31] LABS: Basophils % (auto) 0.2 % (0.0-2.0); Eosinophils % (auto) 0.2 % (0.0-7.0); Hematocrit 36.9 % (41.0-53.0); Hemoglobin 12.7 g/dL (13.5-17.5); Lymphocytes # (auto) 1.3 10 ^3/uL (0.4-5.4); Lymphocytes % (auto) 11.3 % (10.0-50.0); Mean Corpuscular Hemoglobin 35.5 pg (28.0-32.0); Mean Corpuscular Hgb Conc. 34.5 g/dL (32.0-36.0); Mean Corpuscular Volume 102.7 fL (80.0-100.0); Monocytes # (auto) 0.5 10 ^3/uL (0-1.3); Monocytes % (auto) 4.4 % (0.0-12.0); Neutrophils % (auto) 83.9 % (37.0-80.0); Platelet Count (auto) 245 10^3/uL (140-450); Red Blood Cells 3.59 10^6/uL (4.5-5.90); Red Cell Distribution Width 14.7 % (11.8-14.3); White Blood Cell 11.4 10^3/uL (4.4-10.8)
[2020-02-18 06:54] LABS: Potassium 3.1 mmol/L (3.5-5.1)
[2020-02-18 07:04] LABS: Albumin 1.9 g/dL (3.4-5.0); BUN/Creatinine Ratio 42.2; Bilirubin, Total 0.9 mg/dL (0.2-1.0); Calcium 8.8 mg/dL (8.5-10.1); Magnesium 2.3 mg/dL (1.6-2.6); Total Protein 6.8 g/dL (6.4-8.2)
[2020-02-18 08:00] VITALS: BP 129/73
[2020-02-18] MEDS: levoFLOXacin 750MG 150 ML IV SCH (10:00)
[2020-02-18] MEDS: NICOTINE 14 MG/24HR TOPICAL PATCH TD SCH (10:00)
[2020-02-18] MEDS: NITROGLYCERIN 0.2MG/HR TOPICAL PATCH TD SCH (10:00)
[2020-02-18] MEDS ORDERED: CLOPIDOGREL BISULFATE 75 MG TAB PO SCH (10:00)
[2020-02-18] MEDS: PANTOPRAZOLE 40 MG/10 ML VIAL INJ IV SCH (10:00)
[2020-02-18] MEDS: SODIUM CHLOR 0.9% PF (SALINE LOCK) 10ML VIAL/SYR IV SCH ×2 (10:00→21:47)
[2020-02-18] MEDS: AMIODARONE HCL 200 MG TAB PO SCH ×2 (10:00→21:47)
[2020-02-18] MEDS: POTASSIUM EFFERVESENT TAB 25 MEQ GT SCH (10:00)
[2020-02-18] MEDS ORDERED: IOHEXOL 350 MG/ML 100ML IJ ONE (10:03)
[2020-02-18] MEDS: APIXABAN 5 MG TAB PO SCH ×2 (11:30→21:48)
[2020-02-18] MEDS: METOPROLOL TARTRATE 25 MG TAB PO SCH ×2 (11:30→21:48)
[2020-02-18 12:00] VITALS: BP 129/69
[2020-02-18 17:00] VITALS: BP 125/72
[2020-02-18] MEDS: ATORVASTATIN 20 MG TAB PO SCH (21:48)
[2020-02-18 22:00] VITALS: BP 121/68
[2020-02-18] MEDS ORDERED: ceFAZolin 2 GM in D5W 5% 100 ML IV ONE (22:00)
[2020-02-19] MEDS: ceFAZolin 2 GM in D5W 5% 100 ML IV SCH ×3 (05:35→18:42)
[2020-02-19] MEDS: FUROSEMIDE 100 MG/10ML VIAL IV SCH ×2 (05:35→18:00)
[2020-02-19 05:36] VITALS: BP 106/73
[2020-02-19 05:56] LABS: Basophils # (auto) 0 10 ^3/uL (0-0.2); Basophils % (auto) 0.3 % (0.0-2.0); Eosinophils # (auto) 0.1 10 ^3/uL (0-0.8); Eosinophils % (auto) 0.5 % (0.0-7.0); Hemoglobin 12.4 g/dL (13.5-17.5); Lymphocytes # (auto) 1.7 10 ^3/uL (0.4-5.4); Lymphocytes % (auto) 13.7 % (10.0-50.0); Mean Corpuscular Hemoglobin 35.2 pg (28.0-32.0); Mean Corpuscular Hgb Conc. 34.4 g/dL (32.0-36.0); Mean Corpuscular Volume 102.4 fL (80.0-100.0); Monocytes # (auto) 0.5 10 ^3/uL (0-1.3); Neutrophils # (auto) 9.9 10 ^3/uL (1.6-8.6); Neutrophils % (auto) 81.5 % (37.0-80.0); Platelet Count (auto) 282 10^3/uL (140-450); Red Blood Cells 3.51 10^6/uL (4.5-5.90); Red Cell Distribution Width 14.6 % (11.8-14.3); White Blood Cell 12.1 10^3/uL (4.4-10.8)
[2020-02-19] MEDS: ACCU-CHEK COMFORT CURVE STRIP VI SCH ×4 (06:01→22:12)
[2020-02-19] MEDS: InsuLIN REG 1unit/0.01ml Soln (100units/ml) SC SCH ×4 (06:01→22:13)
[2020-02-19 06:21] LABS: Albumin 1.9 g/dL (3.4-5.0); Calcium 8.1 mg/dL (8.5-10.1); Potassium 3.1 mmol/L (3.5-5.1)
[2020-02-19 06:25] LABS: BUN/Creatinine Ratio 34.9; Total Protein 6.4 g/dL (6.4-8.2)
[2020-02-19 08:00] VITALS: BP 111/69
[2020-02-19] MEDS ORDERED: POTASSIUM CHL 20 Meq TABLET PO ONE (09:45)
[2020-02-19] MEDS: SODIUM CHLOR 0.9% PF (SALINE LOCK) 10ML VIAL/SYR IV SCH ×2 (10:00→21:31)
[2020-02-19] MEDS: PANTOPRAZOLE 40 MG/10 ML VIAL INJ IV SCH (10:19)
[2020-02-19] MEDS: AMIODARONE HCL 200 MG TAB PO SCH ×2 (10:20→21:26)
[2020-02-19] MEDS: METOPROLOL TARTRATE 25 MG TAB PO SCH ×2 (10:21→21:27)
[2020-02-19] MEDS: APIXABAN 5 MG TAB PO SCH ×2 (10:21→21:26)
[2020-02-19] MEDS: NITROGLYCERIN 0.2MG/HR TOPICAL PATCH TD SCH (10:23)
[2020-02-19] MEDS: NICOTINE 14 MG/24HR TOPICAL PATCH TD SCH (10:23)
[2020-02-19] MEDS: levoFLOXacin 750MG 150 ML IV SCH (10:28)
[2020-02-19 12:00] VITALS: BP 105/58
[2020-02-19 17:00] VITALS: BP 107/65
[2020-02-19] MEDS: ATORVASTATIN 20 MG TAB PO SCH (21:26)
[2020-02-19 22:00] VITALS: BP 116/62
[2020-02-20 05:00] VITALS: BP 117/73
[2020-02-20] MEDS: ceFAZolin 2 GM in D5W 5% 100 ML IV SCH ×3 (06:00→20:22)
[2020-02-20] MEDS: InsuLIN REG 1unit/0.01ml Soln (100units/ml) SC SCH ×3 (06:19→16:40)
[2020-02-20] MEDS: ACCU-CHEK COMFORT CURVE STRIP VI SCH ×3 (06:20→16:40)
[2020-02-20] MEDS: FUROSEMIDE 100 MG/10ML VIAL IV SCH ×2 (06:21→16:40)
[2020-02-20 06:30] LABS: Basophils # (auto) 0 10 ^3/uL (0-0.2); Basophils % (auto) 0.2 % (0.0-2.0); Eosinophils # (auto) 0.1 10 ^3/uL (0-0.8); Monocytes # (auto) 0.4 10 ^3/uL (0-1.3)
[2020-02-20 06:32] LABS: Eosinophils % (auto) 0.7 % (0.0-7.0); Hematocrit 35.1 % (41.0-53.0); Hemoglobin 11.9 g/dL (13.5-17.5); Lymphocytes # (auto) 1.4 10 ^3/uL (0.4-5.4); Lymphocytes % (auto) 12.3 % (10.0-50.0); Mean Corpuscular Hemoglobin 34.8 pg (28.0-32.0); Mean Corpuscular Hgb Conc. 33.9 g/dL (32.0-36.0); Mean Corpuscular Volume 102.6 fL (80.0-100.0); Monocytes % (auto) 3.2 % (0.0-12.0); Neutrophils # (auto) 9.6 10 ^3/uL (1.6-8.6); Neutrophils % (auto) 83.6 % (37.0-80.0); Platelet Count (auto) 265 10^3/uL (140-450); Red Blood Cells 3.42 10^6/uL (4.5-5.90); Red Cell Distribution Width 14.7 % (11.8-14.3); White Blood Cell 11.4 10^3/uL (4.4-10.8)
[2020-02-20 06:49] LABS: Albumin 1.8 g/dL (3.4-5.0); Calcium 8.4 mg/dL (8.5-10.1); Potassium 3.4 mmol/L (3.5-5.1)
[2020-02-20 06:53] LABS: BUN/Creatinine Ratio 37.7; Bilirubin, Total 1.1 mg/dL (0.2-1.0); Total Protein 6.1 g/dL (6.4-8.2)
[2020-02-20] MEDS: POTASSIUM EFFERVESENT TAB 25 MEQ GT SCH (09:34)
[2020-02-20] MEDS: SODIUM CHLOR 0.9% PF (SALINE LOCK) 10ML VIAL/SYR IV SCH (09:35)
[2020-02-20] MEDS: AMIODARONE HCL 200 MG TAB PO SCH (09:35)
[2020-02-20] MEDS: APIXABAN 5 MG TAB PO SCH (09:36)
[2020-02-20 09:37] VITALS: BP 121/77
[2020-02-20] MEDS: METOPROLOL TARTRATE 25 MG TAB PO SCH (09:37)
[2020-02-20] MEDS ORDERED: levoFLOXacin 250 MG TAB PO SCH (10:00)
[2020-02-20] MEDS ORDERED: POTASSIUM CHL 20 Meq TABLET PO ONE (10:00)
[2020-02-20 12:25] VITALS: BP 118/76
[2020-02-20 14:08] VITALS: BP 121/77
[2020-02-20 16:48] VITALS: BP 127/70
== END 2020-02-20 20:45 | DRG 870 ==
LOC: EDBD 09:36 → ER 09:36 → TELE 09:37 → DOU IN ICU 18:39 → ICU WEST 18:49 → TELE-WESTW 02-16 17:55
PROVIDERS: ADMIT Internal Medicine; ATTEND Family Medicine
PROC: 5A1955Z Respiratory Ventilation, Greater than 96 Consecutive Hours (ICD-10-PCS; principal; 2020-02-09)
PROC: 0BH17EZ Insertion of Endotracheal Airway into Trachea, Via Natural or Artificial Opening (ICD-10-PCS; 2020-02-09)
PROC: 02HV33Z Insertion of Infusion Device into Superior Vena Cava, Percutaneous Approach (ICD-10-PCS; 2020-02-09)
PROC: B24BZZ4 Ultrasonography of Heart with Aorta, Transesophageal (ICD-10-PCS; 2020-02-11)
PROC: 4A023N7 Measurement of Cardiac Sampling and Pressure, Left Heart, Percutaneous Approach (ICD-10-PCS; 2020-02-17)
PROC: B211YZZ Fluoroscopy of Multiple Coronary Arteries using Other Contrast (ICD-10-PCS; 2020-02-17)
PROC: B215YZZ Fluoroscopy of Left Heart using Other Contrast (ICD-10-PCS; 2020-02-17)
DX: A41.01 Sepsis due to Methicillin susceptible Staphylococcus aureus (principal); J96.01 Acute respiratory failure with hypoxia; I21.A1 Myocardial infarction type 2; G93.41 Metabolic encephalopathy; R65.21 Severe sepsis with septic shock; N17.0 Acute kidney failure with tubular necrosis; J18.9 Pneumonia, unspecified organism; E87.1 Hypo-osmolality and hyponatremia; E87.2 Acidosis; Z99.11 Dependence on respirator [ventilator] status; F10.239 Alcohol dependence with withdrawal, unspecified; G93.1 Anoxic brain damage, not elsewhere classified; I48.91 Unspecified atrial fibrillation; I10 Essential (primary) hypertension; E78.5 Hyperlipidemia, unspecified; K57.30 Diverticulosis of large intestine without perforation or abscess without bleeding; F32.9 Major depressive disorder, single episode, unspecified; H57.02 Anisocoria; E11.21 Type 2 diabetes mellitus with diabetic nephropathy; M19.90 Unspecified osteoarthritis, unspecified site; F17.210 Nicotine dependence, cigarettes, uncomplicated; E87.6 Hypokalemia; E78.00 Pure hypercholesterolemia, unspecified; E11.51 Type 2 diabetes mellitus with diabetic peripheral angiopathy without gangrene; I25.10 Atherosclerotic heart disease of native coronary artery without angina pectoris; G89.29 Other chronic pain; F41.9 Anxiety disorder, unspecified; E04.1 Nontoxic single thyroid nodule; E87.70 Fluid overload, unspecified; G90.2 Horner's syndrome; H02.401 Unspecified ptosis of right eyelid; I34.0 Nonrheumatic mitral (valve) insufficiency; E66.01 Morbid (severe) obesity due to excess calories; F12.90 Cannabis use, unspecified, uncomplicated; Z98.42 Cataract extraction status, left eye; Z86.718 Personal history of other venous thrombosis and embolism; Z68.35 Body mass index [BMI] 35.0-35.9, adult; Z71.6 Tobacco abuse counseling; Z71.41 Alcohol abuse counseling and surveillance of alcoholic; Z79.899 Other long term (current) drug therapy
CPT/HCPCS: 31500; 36415; 36569; 36600; 70450; 70491; 70496; 71045; 71250; 71275; 72125; 74176; 76705; 76775; 78452; 80048; 80053; 80061; 80076; 80202; 80307; 80320; 82140; 82550; 82805; 82962; 83036; 83605; 83735; 83880; 84132; 84443; 84484; 85007; 85025; 85027; 85379; 85610; 85652; 85730; 86141; 86704; 86706; 86708; 86803; 87040; 87070; 87077; 87081; 87086; 87186; 87205; 87340; 92610; 93005; 93017; 93306; 93312; 93458; 93886; 93971; 94002; 94003; 95819; 96365; 96372; 96375; 97163; 99152; A4565; A4618; C9113; G0378; J0153; J0330; J0690; J1815; J1956; J2185; J2250; J2405; J2543; J3480; J7060; Q9967

== ENCOUNTER → 2020-05-30 | Emergency (ER) | payer MEDICARE, OTHER ==
[~2020-05-30] VITALS: Ht 180.3 cm; Wt 99.8 kg
[~2020-05-30] MED LIST: ASPI-378 PO; ATOR40TA52 PO; CYCL5TAB PO; GABA100C9 PO; LISI-646 PO; METF-929 PO; POM; PRAZ1CAP48 PO; VENL-192 PO
[2020-05-30 18:34] LABS: Basophils # (auto) 0.1 10 ^3/uL (0-0.2); Basophils % (auto) 0.9 % (0.0-2.0); Eosinophils # (auto) 0.2 10 ^3/uL (0-0.8); Eosinophils % (auto) 3.5 % (0.0-7.0); Hematocrit 37.1 % (41.0-53.0); Hemoglobin 12.5 g/dL (13.5-17.5); Lymphocytes # (auto) 2.3 10 ^3/uL (0.4-5.4); Lymphocytes % (auto) 32.6 % (10.0-50.0); Mean Corpuscular Hemoglobin 33.4 pg (28.0-32.0); Mean Corpuscular Hgb Conc. 33.7 g/dL (32.0-36.0); Mean Corpuscular Volume 99.2 fL (80.0-100.0); Monocytes # (auto) 0.6 10 ^3/uL (0-1.3); Monocytes % (auto) 8.3 % (0.0-12.0); Neutrophils # (auto) 3.9 10 ^3/uL (1.6-8.6); Neutrophils % (auto) 54.7 % (37.0-80.0); Platelet Count (auto) 189 10^3/uL (140-450); Red Blood Cells 3.74 10^6/uL (4.5-5.90); Red Cell Distribution Width 13.7 % (11.8-14.3); White Blood Cell 7.1 10^3/uL (4.4-10.8)
[2020-05-30 18:49] LABS: INR 1.17 (0.9-1.15); Partial Thromboplastin Time 33.4 sec (23.64-32.05)
[2020-05-30 20:00] VITALS: BP 135/82
== END | disposition home or self-care (01) ==
LOC: ER 17:26
DX: R04.0 Epistaxis (principal); D68.9 Coagulation defect, unspecified; I10 Essential (primary) hypertension; E78.5 Hyperlipidemia, unspecified; I25.2 Old myocardial infarction; Z98.61 Coronary angioplasty status
CPT/HCPCS: 36415; 85025; 85610; 85730

== ENCOUNTER 2023-07-02 15:02 | Emergency (ER) | payer MEDICARE, OTHER ==
[~2023-07-02] VITALS: Ht 175.3 cm; Wt 80.0 kg
[~2023-07-02 15:02] MED LIST changes: +CYCL-837 PO; -CYCL5TAB PO; +GABA-1308 PO; -GABA100C9 PO; -LISI-646 PO; +LISI20TA56 PO
[2023-07-02] MEDS ORDERED: LACTULOSE 20Gm/30ML SOLN PO ONE (15:15)
[2023-07-02] MEDS ORDERED: FLEET ENEMA(ADULT) 135 ML PR ONE ×2 (15:15)
[2023-07-02] MEDS ORDERED: SODIUM CHLORIDE 0.9% 1,000 ML IV ONE (16:30)
[2023-07-02 17:05] LABS: Basophils # (auto) 0 10 ^3/uL (0-0.2); Eosinophils # (auto) 0.1 10 ^3/uL (0-0.8); Hemoglobin 11.9 g/dL (13.5-17.5); Lymphocytes # (auto) 1.5 10 ^3/uL (0.4-5.4); Lymphocytes % (auto) 15.9 % (10.0-50.0); Monocytes # (auto) 0.6 10 ^3/uL (0-1.3); Red Cell Distribution Width 19.2 % (11.8-14.3)
[2023-07-02 17:07] LABS: Basophils % (auto) 0.5 % (0.0-2.0); Eosinophils % (auto) 1.2 % (0.0-7.0); Hematocrit 37.3 % (41.0-53.0); Mean Corpuscular Hemoglobin 25.7 pg (28.0-32.0); Mean Corpuscular Hgb Conc. 31.9 g/dL (32.0-36.0); Mean Corpuscular Volume 80.4 fL (80.0-100.0); Monocytes % (auto) 6.9 % (0.0-12.0); Neutrophils % (auto) 75.5 % (37.0-80.0); Nucleated Red Blood Cells % 0.1 %; Red Blood Cells 4.64 10^6/uL (4.5-5.90); White Blood Cell 9.2 10^3/uL (4.4-10.8)
[2023-07-02 17:20] LABS: Albumin 3.1 g/dL (3.4-5.0); Calcium 8.4 mg/dL (8.5-10.1); Potassium 4.9 mmol/L (3.5-5.1)
[2023-07-02 17:24] LABS: Bilirubin, Total 0.3 mg/dL (0.2-1.0); Total Protein 7.2 g/dL (6.4-8.2)
[2023-07-02 17:25] LABS: Lactic Acid w/Reflex 2.4 mmol/L (0.4-2.0)
[2023-07-02 17:49] LABS: Erythrocyte Sedimentation Rate 30 mm/hr (0-20)
[2023-07-02] MEDS ORDERED: ONDANSETRON HCL 4 MG/2 ML VIAL ONE (22:46)
[2023-07-02] MEDS: ONDANSETRON HCL 4 MG/2 ML VIAL IV ONE ×2 (22:47→22:51)
[2023-07-03 00:26] VITALS: TEMP 98.5
[2023-07-03 00:35] VITALS: PULSE 104; RESP 22; O2SAT 96
[2023-07-03 05:00] VITALS: BP 137/77
[2023-07-03 05:54] VITALS: PULSE 95; RESP 18; O2SAT 96
== END 2023-07-03 05:00 | disposition home or self-care (01) ==
LOC: ER 15:02 → EDBD 15:02 → ER 07-03 05:00
DX: K59.00 Constipation, unspecified (principal); E11.9 Type 2 diabetes mellitus without complications; E78.5 Hyperlipidemia, unspecified; I10 Essential (primary) hypertension; I25.2 Old myocardial infarction; R06.02 Shortness of breath; Z86.73 Personal history of transient ischemic attack (TIA), and cerebral infarction without residual deficits
CPT/HCPCS: 36415; 74176; 80053; 83605; 83690; 83880; 84484; 85025; 85652; 96361; 96374; 99285; J2405; J7030